=== PATIENT | male | born 1950 | race Caucasian/White ===

== ENCOUNTER → 2016-09-15 | Outpatient (CLI) | payer OTHER, MEDICARE ==
[~2016-09-15] MED LIST: CETI10TA84 PO; ENOX40IN SQ; MULT-506 PO; OXYSR20 PO
--- NOTE | 2016-09-15 15:58 | DIAGNOSTIC IMAGING REPORT ---
CHEST 2 VIEWS ROUTINE CLINICAL HISTORY: ASTHMA WITH EXACERBATION dyspnea COMPARISON STUDY: 01/24/2014 FINDINGS: The bones soft tissues and hemidiaphragms are normal. The cardiomediastinal silhouette is normal. The lungs are clear. The pulmonary vasculature is normal. IMPRESSION: Negative chest. Electronically signed by: Amari Valerio M.D. 09/15/2016 3:57 PM Dictated Date/Time: 09/15/2016 3:57 PM
== END | disposition home or self-care (01) ==
LOC: C.RADBC 15:39
PROVIDERS: ATTEND Internal Medicine Geriatric Medicine
DX: J45.901 Unspecified asthma with (acute) exacerbation (principal)